=== PATIENT | male | born 1955 | race Caucasian/White ===

== ENCOUNTER → 2020-10-24 | Outpatient (CLI) | payer BC ==
--- NOTE | 2020-10-24 11:27 | KCIC ---
EXAM: 3, right DATE: 10/24/2020 11:07 AM INDICATION: Reason: Worsening Rt knee pain, hurts to bear wt. / Spl. Instructions: / History: COMPARISON: No Prior FINDINGS: No acute fracture or dislocation. Moderate joint effusion. Joint spaces are preserved without signifi cant degenerative/proliferative change. IMPRESSION: No acute fracture or dislocation. Moderate joint effusion. Electronically signed by: Dilip Espinal MD (10/24/2020 11:24 AM) [id number]
== END ==
LOC: KCIC 11:03
PROVIDERS: ATTEND Internal Medicine
DX: M25.561 Pain in right knee (principal); M25.461 Effusion, right knee
CPT/HCPCS: 73562